=== PATIENT | male | born 1955 | race American Indian/Alaskan Native ===

== ENCOUNTER 2018-12-18 07:19 | Outpatient (CLI) | payer BC, MEDICARE ==
--- NOTE | 2018-12-18 13:58 | Cat Scan Report ---
CT lumbar spine without contrast: Low back pain. Transverse images are performed from the lower margin of T12-S1 with coronal and sagittal 2-D reformatted images. The vertebral height and alignment is maintained. Mild anterior traction spurs are noted involving the L3 through L5 bodies. The interspaces are preserved. Significant bilateral apophyseal degenerative changes are identified at the L3-4 level. Lesser changes noted at other levels. No evidence of foraminal or spinal stenosis identified. There is some question concerning the mild central bulge of the posterior L4-5 disc. No obvious neural compression identified. Impressions: Scattered degenerative changes as described. No significant lesion identified.
== END 2018-12-18 07:20 | disposition home or self-care (01) ==
LOC: MRI 07:19 → CT 07:19
PROVIDERS: ATTEND Orthopaedic Surgery
DX: M47.816 Spondylosis without myelopathy or radiculopathy, lumbar region (principal); M19.90 Unspecified osteoarthritis, unspecified site
CPT/HCPCS: 72131